=== PATIENT | female | born 1955 | race American Indian/Alaskan Native ===

== ENCOUNTER 2017-04-27 13:53 | Inpatient (IN) | payer BC ==
[2017-04-27] MEDS ORDERED: Sodium Chloride 0.9% 1,000 ML IV STA (14:20)
[2017-04-27 14:28] LABS: BASO # 0.04 K/mm3 (0.0-2.0); BASO % 0.3 % (0.0-3.0); EOS % 0.2 % (1.5-5.0); GRAN # 11.25 (1.4-6.5); GRAN % 81.1 % (50.0-68.0); HEMATOCRIT 37.5 % (36.0-48.0); LYMPH # 1.3 (1.2-3.4); LYMPH % 9.5 % (22.0-35.0); MEAN CORPUSCULAR HEMOGLOBIN 26.7 pg (25.0-35.0); MEAN CORPUSCULAR HGB CONC 33.3 g/dl (31.0-37.0); MONO # 1.2 (0.1-0.6); MONO % 8.9 % (1.0-6.0); RED CELL DISTRIBUTION WIDTH 13.7 % (11.5-14.5); WHITE BLOOD COUNT 13.9 10^3/ul (4.5-11.0)
[2017-04-27 14:33] LABS: URINE BILIRUBIN MODERATE (NEGATIVE); URINE BLOOD MODERATE (NEGATIVE); URINE GLUCOSE (UA) NEGATIVE (NEGATIVE); URINE KETONE 40 mg/dL (NEGATIVE); URINE LEUKOCYTE ESTERASE NEGATIVE Leu/uL (NEGATIVE); URINE PROTEIN 100 mg/dL (<30 mg/dL)
[2017-04-27 14:35] LABS: ALB/GLOB RATIO 1.1 (1.1-1.8); ALKALINE PHOSPHATASE 108 U/L (38-126); ALT/SGPT 32 U/L (7-56); AST/SGOT 40 U/L (14-36); BILIRUBIN,TOTAL 1.1 mg/dL (0.2-1.3); BLOOD UREA NITROGEN 11 mg/dL (7-21); CALCIUM 9.5 mg/dL (8.4-10.5); CARBON DIOXIDE 21 mmol/L (21-33); CHLORIDE 96 mmol/L (98-107); GFR AFRICAN-AMERICAN > 60; GLUCOSE,RANDOM 77 mg/dL (70-110); LIPASE 32 U/L (23-300); POTASSIUM 3.6 mmol/L (3.6-5.0); SODIUM 139 mmol/L (132-148); TOTAL PROTEIN 8.7 g/dL (5.8-8.3)
[2017-04-27 14:35] LABS: URINE APPEARANCE SL CLOUDY (CLEAR); URINE COLOR YELLOW (YELLOW)
[2017-04-27 14:36] LABS: URINE RBC 0 - 2 /hpf (0-2)
--- NOTE | 2017-04-27 14:37 | ED PDOC ---
Arrival/HPI - General Chief Complaint: Abdominal Pain Time Seen by Provider: 04/27/17 14:14 Historian: Patient - History of Present Illness Narrative History of Present Illness (Text): 04/27/17 14:37 A 61 year old female, whose past medical history includes diverticulosis, presents to the emergency department with one week duration left lower quadrant abdominal pain. The patient denies fevers, chills, headache, dizziness, sore throat, cough, chest pain, shortness of breath, dyspnea on exertion, nausea, vomiting, diarrhea, neck pain, back pain, urinary/bowel changes, blood in the stool, or any other complaints. PMD: Dr. Andujar Time/Duration: 1 week Symptom Onset: Sudden Symptom Course: Unchanged Activities at Onset: Rest, Light Context: Home Past Medical History - Provider Review Nursing Documentation Reviewed: Yes - Cardiac Hx Cardiac Disorders: No - Pulmonary Hx Respiratory Disorders: No - Neurological Hx Neurological Disorder: No - HEENT Hx HEENT Disorder: No - Renal Hx Renal Disorder: No - Endocrine/Metabolic Hx Endocrine Disorders: No - Hematological/Oncological Hx Blood Disorders: No - Integumentary Hx Dermatological Disorder: No - Musculoskeletal/Rheumatological Hx Musculoskeletal Disorders: No - Gastrointestinal Hx Diverticulitis: Yes - Genitourinary/Gynecological Hx Genitourinary Disorders: No - Psychiatric Hx Psychophysiologic Disorder: No Hx Substance Use: No Family/Social History - Physician Review Nursing Documentation Reviewed: Yes Family/Social History: No Known Family HX Smoking Status: Never Smoked Hx Alcohol Use: Yes Frequency of alcohol use: Socially Hx Substance Use: No Allergies/Home Meds Allergies/Adverse Reactions: Allergies codeine Allergy (Verified 04/27/17 13:59) SWELLING Review of Systems - Physician Review All systems were reviewed & negative as marked: Yes - Review of Systems Constitutional: absent: Fevers, Night Sweats Respiratory: absent: SOB, Cough Cardiovascular: absent: Chest Pain, RINCON Gastrointestinal: Abdominal Pain (LLQ Abdominal Pain). absent: Stool Changes, Diarrhea, Nausea, Vomiting, Hematemesis Genitourinary Female: absent: Urine Output Changes Musculoskeletal: absent: Back Pain, Neck Pain Neurological: absent: Headache, Dizziness Physical Exam Vital Signs Reviewed: Yes Vital Signs Temp Pulse Resp BP Pulse Ox 04/27/17 14:00 98.4 F 99 H 16 120/87 96 Temperature: Afebrile Blood Pressure: Normal Pulse: Tachycardic Respiratory Rate: Normal Appearance: Positive for: Well-Appearing, Non-Toxic, Comfortable Pain Distress: None Mental Status: Positive for: Alert and Oriented X 3 - Systems Exam Head: Present: Atraumatic, Normocephalic Pupils: Present: PERRL Extroacular Muscles: Present: EOMI Conjunctiva: Present: Normal Mouth: Present: Moist Mucous Membranes Neck: Present: Normal Range of Motion Respiratory/Chest: Present: Clear to Auscultation, Good Air Exchange. No: Respiratory Distress, Accessory Muscle Use Cardiovascular: Present: Regular Rate and Rhythm, Normal S1, S2. No: Murmurs Abdomen: Present: Tenderness (Tender on palpation of LLQ.) Back: Present: Normal Inspection Upper Extremity: Present: Normal Inspection. No: Cyanosis, Edema Lower Extremity: Present: Normal Inspection. No: Edema Neurological: Present: GCS=15, CN II-XII Intact, Speech Normal Skin: Present: Warm, Dry, Normal Color. No: Rashes Psychiatric: Present: Alert, Oriented x 3, Normal Insight, Normal Concentration Medical Decision Making ED Course and Treatment: 04/27/17 14:41 Impression: A 61 year old female presents with LLQ abdominal pain. Plan: -- Abdomen/ Pelvis CT -- Toradol and IV Fluids -- Labs -- Urinalysis -- Reassess and disposition Progress Notes: 04/27/17 18:45: Discussed results of abscess and need for surgical intervention. 04/27/17 19:38: Case discussed with Dr. Motta, residential door installer. Dr. Madrid will admit to service. 04/27/17 21:22 - Lab Interpretations Lab Results: 04/27/17 14:22 04/27/17 14:22 Lab Results 04/27/17 14:29: Urine Color Yellow, Urine Appearance Sl cloudy, Urine pH 6.0, Ur Specific Nice >= 1.030, Urine Protein 100 H, Urine Glucose (UA) Negative, Urine Ketones 40 H, Urine Blood Moderate H, Urine Nitrate Negative, Urine Bilirubin Moderate H, Urine Urobilinogen 1.0 H, Ur Leukocyte Esterase Negative, Urine RBC 0 - 2, Urine WBC 1 - 3, Ur Epithelial Cells 1 - 3 04/27/17 14:22: Sodium 139, Potassium 3.6, Chloride 96 L, Carbon Dioxide 21, Anion Gap 26 H, BUN 11, Creatinine 0.6 L, Est GFR ( Amer) > 60, Est GFR ( Non-Af Amer) > 60, Random Glucose 77, Calcium 9.5, Total Bilirubin 1.1, AST 40 H , ALT 32, Alkaline Phosphatase 108, Total Protein 8.7 H, Albumin 4.5, Globulin 4.2, Albumin/Globulin Ratio 1.1, Lipase 32 04/27/17 14:22: PT 11.8, INR 1.09 H, APTT 31.5 H 04/27/17 14:22: WBC 13.9 H, RBC 4.69, Hgb 12.5, Hct 37.5, MCV 80.0, MCH 26.7, MCHC 33.3, RDW 13.7, Plt Count 334, MPV 10.0, Gran % 81.1 H, Lymph % (Auto) 9.5 L, Day % (Auto) 8.9 H, Eos % (Auto) 0.2 L, Baso % (Auto) 0.3, Gran # 11.25 H, Lymph # 1.3, Day # 1.2 H, Eos # 0.0, Baso # 0.04 I have reviewed the lab results: Yes - RAD Interpretation Radiology Orders: 04/27/17 16:13 ABD PELVIS PO & IV CONTRAST [CT] Stat - Medication Orders Current Medication Orders: Acetaminophen (Tylenol 325mg Tab) 650 mg PO Q6H PRN PRN Reason: Fever >100.4 F Ciprofloxacin (Cipro 400mg/200ml Dsw) 400 mg in 200 mls @ 133.3 mls/hr IVPB Q12 STEVE PRN Reason: Protocol Stop: 04/27/17 23:31 Metronidazole (Flagyl) 500 mg in 100 mls @ 100 mls/hr IVPB Q8 STEVE PRN Reason: Protocol Sodium Chloride (Sodium Chloride 0.9%) 1,000 mls @ 100 mls/hr IV .Q10H [facility] Last Admin: 04/27/17 20:51 Dose: 100 mls/hr eMAR Start Stop Document 04/27/17 20:51 SE (Rec: 04/27/17 20:51 [id number]) Intravenous Solution Start Date 04/27/17 Start Time 20:51 Ibuprofen (Motrin Tab) 600 mg PO Q6H PRN PRN Reason: Pain, moderate (4-7) Pantoprazole Sodium (Protonix Inj) 40 mg IVP DAILY STEVE Discontinued Medications Sodium Chloride (Sodium Chloride 0.9%) 1,000 mls @ 1,000 mls/hr IV .Q1H STA Stop: 04/27/17 15:19 Last Admin: 04/27/17 14:29 Dose: 1,000 mls/hr eMAR Start Stop Document 04/27/17 14:29 SE (Rec: 04/27/17 14:29 [id number]) Intravenous Solution Start Date 04/27/17 Start Time 14:29 Piperacillin Sod/Tazobactam Sod (Zosyn 3.375 In Ns 100ml) 100 mls @ 200 mls/hr IVPB STAT STA PRN Reason: Protocol Stop: 04/27/17 19:06 Last Admin: 04/27/17 19:17 Dose: 200 mls/hr eMAR Start Stop Document 04/27/17 19:17 SE (Rec: 04/27/17 19:18 [id number]) Intravenous Solution Start Date 04/27/17 Start Time 19:18 Ketorolac Tromethamine (Toradol) 30 mg IVP STAT STA Stop: 04/27/17 14:21 Last Admin: 04/27/17 14:29 Dose: 30 mg MAR Pain Assessment Document 04/27/17 14:29 SE (Rec: 04/27/17 14:30 [id number]) Pain Reassessment Is this a pain reassessment? No Sleep Is patient sleeping during reassessment? No Presence of Pain Presence of Pain Yes Pain Scale Used Pain Scale Used Numeric Location Left, Right or Bilateral Left Upper or Lower Lower Pain Location Body Site Abdomen IVP Administration Document 04/27/17 14:29 SE (Rec: 04/27/17 14:30 [id number]) Charges for Administration # of IVP Administrations 1 - Scribe Statement The provider has reviewed the documentation as recorded by the Edilibnimisha Batres Provider Scribe Attestation: All medical record entries made by the Scribe were at my direction and personally dictated by me. I have reviewed the chart and agree that the record accurately reflects my personal performance of the history, physical exam, medical decision making, and the department course for this patient. I have also personally directed, reviewed, and agree with the discharge instructions and disposition. Disposition/Present on Arrival - Present on Arrival Any Indicators Present on Arrival: No History of DVT/PE: No History of Uncontrolled Diabetes: No Urinary Catheter: No History of Decub. Ulcer: No History Surgical Site Infection Following: None - Disposition Have Diagnosis and Disposition been Completed?: Yes Diagnosis: Diverticulitis of intestine with abscess Disposition: HOSPITALIZED Disposition Time: 07:00 Patient Problems: Current Active Problems Problem Status Onset Diverticulitis of intestine with abscess Acute Condition: STABLE
[2017-04-27 14:38] LABS: INR 1.09 (0.93-1.08); PARTIAL THROMBOPLASTIN TIME 31.5 Seconds (23.7-30.8)
[2017-04-27] MEDS ORDERED: Iohexol 240 (50 ml) ONE (15:29)
[2017-04-27] MEDS ORDERED: Iohexol 350 MG/100 ML VIAL ONE (17:56)
[2017-04-27] MEDS ORDERED: Piperacillin/Tazobact 3.375 gm 100 ML IVPB STA (18:37)
--- NOTE | 2017-04-27 20:03 | CT ---
PROCEDURE: CT Abdomen and Pelvis with contrast HISTORY: Left lower quadrant pain COMPARISON: 10/19/2015 CT abdomen and pelvis. Summary of findings on the comparison examination:Diverticulitis at the junction of the descending and sigmoid colon. No evidence of abscess or perforation 10/19/2015 abdominal ultrasound TECHNIQUE: Contrast dose: 100 cc Omnipaque 300 Radiation dose: Total exam DLP = 348.57 mGy-cm. This CT exam was performed using one or more of the following dose reduction techniques: Automated exposure control, adjustment of the mA and/or kV according to patient size, and/or use of iterative reconstruction technique. FINDINGS: LOWER THORAX: Unremarkable. LIVER: Unremarkable. No gross lesion or ductal dilatation. GALLBLADDER AND BILE DUCTS: Unremarkable. PANCREAS: Unremarkable. No gross lesion or ductal dilatation. SPLEEN: Unremarkable. ADRENALS: Unremarkable. No mass. KIDNEYS AND URETERS: Unremarkable. No hydronephrosis. No solid mass. VASCULATURE: Unremarkable. No aortic aneurysm. BOWEL: Segmental diverticulitis extending from the distal descending colon to and involving the sigmoid colon with sparing of the rectum. Low-attenuation focus within the inflammatory, phlegmonous process measuring 1.7 x 3.1 cm likely small abscess. This finding is best seen on coronal images series 601/image 41. Intense inflammatory changes involving the affected segment. Small micro perforations none larger than 7 mm are identified. Anatomically a similar area was affected on the prior study. Degree of acute diverticulitis however is more intense on the current study. APPENDIX: Normal appendix. PERITONEUM: Unremarkable. No free fluid. No free air. LYMPH NODES: Unremarkable. No enlarged lymph nodes. BLADDER: Unremarkable. REPRODUCTIVE: Anteverted myomatous uterus unchanged. BONES: No acute fracture. OTHER FINDINGS: None. IMPRESSION: Acute diverticulitis affecting distal descending and sigmoid colon. Abscess collection identified and described in greater detail in the commentary measuring 1.7 x 3.1 cm. The affected segment is similar to that seen previously although degree of intensity is more pronounced on the current examination. Additional benign and/or incidental findings described above.
--- NOTE | 2017-04-27 20:29 | CP.PCM.HP ---
<ZofiaSavanah - Last Filed: 04/27/17 20:24> History of Present Illness - History of Present Illness History of Present Illness: H&P for HospitalistGunjan PGY2 CC: LLQ abdominal pain x 1 week This is a 61Y F with PMH of diverticulosis who came to ED for LLQ pain x 1 week. She reports it is intermittent and does not radiate. She has been able to go to work and has not taken any pain medications. She states today she came to ED because it has not resolved. She denies having any n/v/d, CP, SOB, fever/ chills, numbness/tingling, dysuria or hematuria. Her GI is Dr. Toure. He did a colonoscopy this summer and patient reports it was "normal". She had only 1 episode of diverticulitis in the past 18 months ago. In ED, CT abd/pelvis showed acute diverticulitis in sigmoid and distal descending colon with small phlegmon process. PMH: Diverticulosis PSH: Denies Home meds: None All: Codeine- anaphylaxis SH: Denies tobacco, EtOH or drug use. FH: Breast cancer- sister PMD: Dr. Antonio Present on Admission - Present on Admission Any Indicators Present on Admission: No Review of Systems - Review of Systems All systems: reviewed and no additional remarkable complaints except Review of Systems: + abdominal pain Past Patient History - Past Social History Smoking Status: Never Smoked Alcohol: None Drugs: Denies Home Situation {Lives}: With Family - CARDIAC Hx Cardiac Disorders: No - PULMONARY Hx Respiratory Disorders: No - NEUROLOGICAL Hx Neurological Disorder: No - HEENT Hx HEENT Problems: No - RENAL Hx Chronic Kidney Disease: No - ENDOCRINE/METABOLIC Hx Endocrine Disorders: No - HEMATOLOGICAL/ONCOLOGICAL Hx Blood Disorders: No - INTEGUMENTARY Hx Dermatological Problems: No - MUSCULOSKELETAL/RHEUMATOLOGICAL Hx Musculoskeletal Disorders: No - GASTROINTESTINAL Hx Diverticulitis: Yes - GENITOURINARY/GYNECOLOGICAL Hx Genitourinary Disorders: No - PSYCHIATRIC Hx Psychophysiologic Disorder: No Hx Substance Use: No - SURGICAL HISTORY Hx Surgeries: No Meds Home Medications: Home Medication List Medication Instructions Recorded Confirmed Type Levofloxacin [Levaquin] 500 mg PO DAILY #7 tablet 04/30/17 Rx Metronidazole [Flagyl] 500 mg PO TID #21 tablet 04/30/17 Rx Allergies/Adverse Reactions: Allergies Allergy/AdvReac Type Severity Reaction Status Date / Time codeine Allergy SWELLING Verified 04/27/17 13:59 Physical Exam - Constitutional Appears: No Acute Distress - Head Exam Head Exam: ATRAUMATIC, NORMAL INSPECTION, NORMOCEPHALIC - Eye Exam Eye Exam: Normal appearance, PERRL Pupil Exam: NORMAL ACCOMODATION - ENT Exam ENT Exam: Mucous Membranes Moist - Respiratory Exam Respiratory Exam: Clear to Auscultation Bilateral, NORMAL BREATHING PATTERN. absent: Rales, Rhonchi, Wheezes - Cardiovascular Exam Cardiovascular Exam: REGULAR RHYTHM, +S1, +S2. absent: Gallop, Rubs, Systolic Murmur - GI/Abdominal Exam GI & Abdominal Exam: Normal Bowel Sounds, Soft, Tenderness (mild LLQ). absent: Guarding, Mass, Rebound, Rigid - Extremities Exam Extremities exam: Positive for: normal inspection. Negative for: calf tenderness, pedal edema - Neurological Exam Neurological exam: Alert, CN II-XII Intact, Oriented x3 - Psychiatric Exam Psychiatric exam: Normal Affect, Normal Mood - Skin Skin Exam: Dry, Intact, Normal Color, Warm Results - Vital Signs Recent Vital Signs: Last Vital Signs Temp 98.4 F 04/27/17 14:00 Pulse 99 H 04/27/17 14:00 Resp 16 04/27/17 14:00 BP 120/87 04/27/17 14:00 Pulse Ox 96 04/27/17 14:00 - Labs Result Diagrams: 04/27/17 14:22 04/27/17 14:22 Labs: Laboratory Results - last 24 hr 04/27/17 04/27/17 04/27/17 14:22 14:22 14:22 WBC 13.9 H RBC 4.69 Hgb 12.5 Hct 37.5 MCV 80.0 MCH 26.7 MCHC 33.3 RDW 13.7 Plt Count 334 MPV 10.0 Gran % 81.1 H Lymph % (Auto) 9.5 L Eddy % (Auto) 8.9 H Eos % (Auto) 0.2 L Baso % (Auto) 0.3 Gran # 11.25 H Lymph # 1.3 Eddy # 1.2 H Eos # 0.0 Baso # 0.04 PT 11.8 INR 1.09 H APTT 31.5 H Sodium 139 Potassium 3.6 Chloride 96 L Carbon Dioxide 21 Anion Gap 26 H BUN 11 Creatinine 0.6 L Est GFR ( Amer) > 60 Est GFR (Non-Af Amer) > 60 Random Glucose 77 Calcium 9.5 Total Bilirubin 1.1 AST 40 H ALT 32 Alkaline Phosphatase 108 Total Protein 8.7 H Albumin 4.5 Globulin 4.2 Albumin/Globulin Ratio 1.1 Lipase 32 Urine Color Urine Appearance Urine pH Ur Specific Dennis Urine Protein Urine Glucose (UA) Urine Ketones Urine Blood Urine Nitrate Urine Bilirubin Urine Urobilinogen Ur Leukocyte Esterase Urine RBC Urine WBC Ur Epithelial Cells 04/27/17 14:29 WBC RBC Hgb Hct MCV MCH MCHC RDW Plt Count MPV Gran % Lymph % (Auto) Eddy % (Auto) Eos % (Auto) Baso % (Auto) Gran # Lymph # Eddy # Eos # Baso # PT INR APTT Sodium Potassium Chloride Carbon Dioxide Anion Gap BUN Creatinine Est GFR ( Amer) Est GFR (Non-Af Amer) Random Glucose Calcium Total Bilirubin AST ALT Alkaline Phosphatase Total Protein Albumin Globulin Albumin/Globulin Ratio Lipase Urine Color Yellow Urine Appearance Sl cloudy Urine pH 6.0 Ur Specific Dennis >= 1.030 Urine Protein 100 H Urine Glucose (UA) Negative Urine Ketones 40 H Urine Blood Moderate H Urine Nitrate Negative Urine Bilirubin Moderate H Urine Urobilinogen 1.0 H Ur Leukocyte Esterase Negative Urine RBC 0 - 2 Urine WBC 1 - 3 Ur Epithelial Cells 1 - 3 Assessment & Plan - Assessment and Plan (Free Text) Assessment: This is a 61Y F with PMH of diverticulosis who is admitted for acute diverticulitis at the sigmoid and distal descending colon with possible small abscess seen on CT. Plan: 1. Diverticulitis - Cipro, Flagyl - NS@100 - GI consulted - Surgery consulted - Tylenol prn fever - Motrin prn pain - NPO diet GI ppx: Protonix DVT ppx: SCDs Case seen, discussed and reviewed with attending. Gunjan Armijo PGY2 - Date & Time Date: 04/27/17 Time: 20:41 <Ty Bermudez MD - Last Filed: 04/30/17 10:55> Results - Vital Signs Recent Vital Signs: Last Vital Signs Temp 97.9 F 04/30/17 08:14 Pulse 61 04/30/17 08:14 Resp 20 04/30/17 08:14 BP 128/87 04/30/17 08:14 Pulse Ox 100 04/30/17 08:14 - Labs Result Diagrams: 04/29/17 07:00 04/29/17 07:00 Attending/Attestation - Attestation I have personally seen and examined this patient.: Yes I have fully participated in the care of the patient.: Yes I have reviewed all pertinent clinical information: Yes Notes (Text): -I agree with the above H&P completed by the resident physician with the following additions and/or changes: -The patient is a 61 year old woman being admitted for acute diverticulitis with CT findings concerning for possible associated abscess. She's be started on empiric IV antibiotics and kept NPO for bowel rest. Surgery has been consulted possible drainage of abscess. IV Morphine and Zofran for symptomatic relief as needed.
--- NOTE | 2017-04-27 20:39 | CP.PCM.CON ---
History of Present Illness - History of Present Illness History of Present Illness: General Surgery Consult Note- Dr. Motta 61F pmhx of one episode of diverticulitis 1.5 years ago was treated conservatively presents to [facility] with LLQ abdominal pain that started Sunday. Pain has been intermittent, and decided to come to the ED to make sure "there was nothing serious". Pt has been eating yogurt over the past week, Pain is relieved after flatus. Currently denies pain. No episodes of Nausea vomiting diarrhea, BRBPR bloody BM. Pt previous episode of diverticulitis, she experienced fevers chills and was more symptomatic. At this time patient denies F/C CP/SOB N/V/D BRBPR, change in urinary frequency MARTINEZ Numbness/tingling in extremities. Pt currently has an appetite. Last colonoscopy was this summer and stated it was "normal" PMH: Diverticulitis, Hemorrhoids PSH: none ALL: Codine SocialHx: Denies ETOH, tobacco, illicit drug use PMD: Dr. Andujar GI: Dr. Haddad Review of Systems - Review of Systems All systems: reviewed and no additional remarkable complaints except - Constitutional Constitutional: As Per HPI Past Patient History - Past Social History Smoking Status: Never Smoked - CARDIAC Hx Cardiac Disorders: No - PULMONARY Hx Respiratory Disorders: No - NEUROLOGICAL Hx Neurological Disorder: No - HEENT Hx HEENT Problems: No - RENAL Hx Chronic Kidney Disease: No - ENDOCRINE/METABOLIC Hx Endocrine Disorders: No - HEMATOLOGICAL/ONCOLOGICAL Hx Blood Disorders: No - INTEGUMENTARY Hx Dermatological Problems: No - MUSCULOSKELETAL/RHEUMATOLOGICAL Hx Musculoskeletal Disorders: No - GASTROINTESTINAL Hx Diverticulitis: Yes - GENITOURINARY/GYNECOLOGICAL Hx Genitourinary Disorders: No - PSYCHIATRIC Hx Psychophysiologic Disorder: No Hx Substance Use: No - SURGICAL HISTORY Hx Surgeries: No Meds Home Medications: Home Medication List Medication Instructions Recorded Confirmed Type Ciprofloxacin [Cipro] 500 mg PO BID #20 tab 04/27/17 Rx metroNIDAZOLE [Flagyl] 500 mg PO TID #30 tab 04/27/17 Rx Allergies/Adverse Reactions: Allergies Allergy/AdvReac Type Severity Reaction Status Date / Time codeine Allergy SWELLING Verified 04/27/17 13:59 - Medications Medications: Current Medications Acetaminophen (Tylenol 325mg Tab) 650 mg PO Q6H PRN PRN Reason: Fever >100.4 F Ciprofloxacin (Cipro 400mg/200ml Dsw) 400 mg in 200 mls @ 133.3 mls/hr IVPB Q12 STEVE PRN Reason: Protocol Stop: 04/27/17 23:31 Metronidazole (Flagyl) 500 mg in 100 mls @ 100 mls/hr IVPB Q8 STEVE PRN Reason: Protocol Sodium Chloride (Sodium Chloride 0.9%) 1,000 mls @ 100 mls/hr IV .Q10H STEVE Pantoprazole Sodium (Protonix Inj) 40 mg IVP DAILY [facility] Physical Exam - Constitutional Appears: Non-toxic, No Acute Distress - Head Exam Head Exam: ATRAUMATIC - Eye Exam Eye Exam: EOMI. absent: Scleral icterus - ENT Exam ENT Exam: Mucous Membranes Moist - Respiratory Exam Respiratory Exam: NORMAL BREATHING PATTERN. absent: Accessory Muscle Use, Respiratory Distress - Cardiovascular Exam Cardiovascular Exam: +S1, +S2. absent: Bradycardia, Tachycardia - GI/Abdominal Exam GI & Abdominal Exam: Soft, Tenderness. absent: Distended, Firm, Guarding, Hernia, Rigid Additional comments: Tender to deep palpation in LLQ. No palpable masses or rebound tenderness - Extremities Exam Extremities exam: Positive for: normal inspection. Negative for: calf tenderness - Back Exam Back exam: absent: CVA tenderness (L), CVA tenderness (R) - Neurological Exam Neurological exam: Alert, Oriented x3 - Skin Skin Exam: Normal Color, Warm Results - Vital Signs Recent Vital Signs: Last Vital Signs Temp 98.4 F 04/27/17 14:00 Pulse 99 H 04/27/17 14:00 Resp 16 04/27/17 14:00 BP 120/87 04/27/17 14:00 Pulse Ox 96 04/27/17 14:00 - Labs Result Diagrams: 04/27/17 14:22 04/27/17 14:22 Assessment & Plan - Assessment and Plan (Free Text) Assessment: 61F LLQ, Acute diverticulitis w/ paracolic abscess Plan: - NPO - IVF/Abx - Bowel rest - GI/DVT ppx - repeat labs - further recs per Dr. Kalia Mccollum PGY1
[2017-04-27] MEDS: Sodium Chloride 0.9% 1,000 ML IV SCH (20:51)
[2017-04-27] MEDS ORDERED: Ciprofloxacin 400mg/200ml D5W 400 MG/200 ML BAG IVPB SCH (22:00)
[2017-04-27] MEDS: metroNIDAZOLE IV 500 mg/100 ml 500 MG/100 ML BAG IVPB SCH (22:30)
[2017-04-28] MEDS: metroNIDAZOLE IV 500 mg/100 ml 500 MG/100 ML BAG IVPB SCH ×3 (06:00→21:38)
[2017-04-28] MEDS: Dextrose 5%/0.9% NS 1,000 ML IV SCH ×2 (07:49→19:15)
[2017-04-28 08:24] LABS: BASO # 0.04 K/mm3 (0.0-2.0); BASO % 0.3 % (0.0-3.0); EOS % 0.3 % (1.5-5.0); GRAN # 10.77 (1.4-6.5); GRAN % 80.3 % (50.0-68.0); HEMATOCRIT 30.7 % (36.0-48.0); LYMPH # 1.4 (1.2-3.4); LYMPH % 10.7 % (22.0-35.0); MEAN CELL VOLUME 79.9 fl (80.0-105.0); MEAN CORPUSCULAR HEMOGLOBIN 26.6 pg (25.0-35.0); MEAN CORPUSCULAR HGB CONC 33.2 g/dl (31.0-37.0); MEAN PLATELET VOLUME 9.9 fl (7.0-11.0); MONO # 1.1 (0.1-0.6); MONO % 8.4 % (1.0-6.0); RED CELL DISTRIBUTION WIDTH 13.7 % (11.5-14.5); WHITE BLOOD COUNT 13.4 10^3/ul (4.5-11.0)
[2017-04-28 08:45] LABS: ALKALINE PHOSPHATASE 80 U/L (38-126); ALT/SGPT 36 U/L (7-56); AST/SGOT 35 U/L (14-36); BILIRUBIN,TOTAL 0.9 mg/dL (0.2-1.3); BLOOD UREA NITROGEN 7 mg/dL (7-21); CALCIUM 8.6 mg/dL (8.4-10.5); CARBON DIOXIDE 19 mmol/L (21-33); CHLORIDE 105 mmol/L (98-107); GFR AFRICAN-AMERICAN > 60; GLUCOSE,RANDOM 71 mg/dL (70-110); POTASSIUM 4.5 mmol/L (3.6-5.0); SODIUM 141 mmol/L (132-148); TOTAL PROTEIN 6.7 g/dL (5.8-8.3)
--- NOTE | 2017-04-28 09:16 | CP.PCM.PN ---
Subjective - Date & Time of Evaluation Date of Evaluation: 04/28/17 Time of Evaluation: 07:00 - Subjective Subjective: General Surgery- Dr. Motta Pt S&E at bedside this AM. No acute events overnight. Pt currently NPO, however has an appetite and would like to eat. Denies F/C CP/SOB N/V/D Objective - Vital Signs/Intake and Output Vital Signs (last 24 hours): Temp Pulse Resp BP Pulse Ox 98.4 F 83 20 111/76 98 04/28/17 09:00 04/28/17 09:00 04/28/17 09:00 04/28/17 09:00 04/28/17 09:00 - Medications Medications: Current Medications Acetaminophen (Tylenol 325mg Tab) 650 mg PO Q6H PRN PRN Reason: Fever >100.4 F Metronidazole (Flagyl) 500 mg in 100 mls @ 100 mls/hr IVPB Q8 STEVE PRN Reason: Protocol Last Admin: 04/28/17 06:00 Dose: 100 mls/hr Sodium Chloride (Sodium Chloride 0.9%) 1,000 mls @ 100 mls/hr IV .Q10H STEVE Last Admin: 04/27/17 20:51 Dose: 100 mls/hr Levofloxacin/Dextrose (Levaquin 500mg) 500 mg in 100 mls @ 100 mls/hr IVPB DAILY STEVE Stop: 05/01/17 23:59 Dextrose/Sodium Chloride (Dextrose 5%/0.9% Ns 1000 Ml) 1,000 mls @ 100 mls/hr IV .Q10H STEVE Last Admin: 04/28/17 07:49 Dose: 100 mls/hr Pantoprazole Sodium (Protonix Inj) 40 mg IVP DAILY STEVE - Labs Labs: 04/28/17 08:17 04/28/17 08:17 PT 11.8 Seconds (9.9-11.8) 04/27/17 14:22 INR 1.09 (0.93-1.08) H 04/27/17 14:22 APTT 31.5 Seconds (23.7-30.8) H 04/27/17 14:22 - Constitutional Appears: Non-toxic, No Acute Distress - Head Exam Head Exam: ATRAUMATIC - Eye Exam Eye Exam: EOMI. absent: Scleral icterus - ENT Exam ENT Exam: Mucous Membranes Moist - Respiratory Exam Respiratory Exam: NORMAL BREATHING PATTERN. absent: Accessory Muscle Use, Respiratory Distress - Cardiovascular Exam Cardiovascular Exam: +S1, +S2. absent: Bradycardia, Tachycardia - GI/Abdominal Exam GI & Abdominal Exam: Soft. absent: Distended, Firm, Guarding, Rigid, Tenderness - Extremities Exam Extremities Exam: Normal Inspection. absent: Calf Tenderness - Back Exam Back Exam: absent: CVA tenderness (L), CVA tenderness (R) - Neurological Exam Neurological Exam: Alert, Awake, Oriented x3 - Psychiatric Exam Psychiatric exam: Normal Affect - Skin Skin Exam: Normal Color, Warm Assessment and Plan - Assessment and Plan (Free Text) Assessment: 61F w/ Acute Diverticulitis Plan: - Advance diet to clears - IV Abx - serial abd exams - Trend WBC - No acute surgical intervention at this time - Will talk to IR for possible Abscess drainage - further recs per Dr. Kalia Mccollum PGY1
[2017-04-28] MEDS: levoFLOXacin 500 mg in D5W 500 MG/100 ML BAG IVPB SCH (10:07)
--- NOTE | 2017-04-28 10:32 | CP.PCM.PN ---
<Dami Torres - Last Filed: 04/28/17 10:32> Subjective - Date & Time of Evaluation Date of Evaluation: 04/28/17 Time of Evaluation: 08:30 - Subjective Subjective: Pt seen and examined at bedside this AM. No acute events overnight. Pt currently NPO, however has an appetite and would like to eat. Denies any fevers , chills, nausea, vomiting, chest pain, shortness of breath, abdominal pain, diarrhea or any other complaints. Objective - Vital Signs/Intake and Output Vital Signs (last 24 hours): Temp Pulse Resp BP Pulse Ox 98.4 F 83 20 111/76 98 04/28/17 09:00 04/28/17 09:00 04/28/17 09:00 04/28/17 09:00 04/28/17 09:00 - Medications Medications: Current Medications Acetaminophen (Tylenol 325mg Tab) 650 mg PO Q6H PRN PRN Reason: Fever >100.4 F Metronidazole (Flagyl) 500 mg in 100 mls @ 100 mls/hr IVPB Q8 [facility] PRN Reason: Protocol Last Admin: 04/28/17 06:00 Dose: 100 mls/hr Sodium Chloride (Sodium Chloride 0.9%) 1,000 mls @ 100 mls/hr IV .Q10H [facility] Last Admin: 04/27/17 20:51 Dose: 100 mls/hr Levofloxacin/Dextrose (Levaquin 500mg) 500 mg in 100 mls @ 100 mls/hr IVPB DAILY [facility] Stop: 05/01/17 23:59 Last Admin: 04/28/17 10:07 Dose: 100 mls/hr Dextrose/Sodium Chloride (Dextrose 5%/0.9% Ns 1000 Ml) 1,000 mls @ 100 mls/hr IV .Q10H [facility] Last Admin: 04/28/17 07:49 Dose: 100 mls/hr Pantoprazole Sodium (Protonix Inj) 40 mg IVP DAILY [facility] Last Admin: 04/28/17 10:07 Dose: 40 mg - Labs Labs: 04/28/17 08:17 04/28/17 08:17 PT 11.8 Seconds (9.9-11.8) 04/27/17 14:22 INR 1.09 (0.93-1.08) H 04/27/17 14:22 APTT 31.5 Seconds (23.7-30.8) H 04/27/17 14:22 - Head Exam Head Exam: ATRAUMATIC, NORMAL INSPECTION, NORMOCEPHALIC - Eye Exam Eye Exam: EOMI, Normal appearance, PERRL Pupil Exam: NORMAL ACCOMODATION, PERRL. absent: Irregular, Unequal - ENT Exam ENT Exam: Mucous Membranes Moist, Normal Exam. absent: Normal Oropharynx, TM's Normal Bilaterally - Neck Exam Neck Exam: Normal Inspection. absent: Lymphadenopathy, Thyromegaly - Respiratory Exam Respiratory Exam: Clear to Ausculation Bilateral, NORMAL BREATHING PATTERN. absent: Respiratory Distress - Cardiovascular Exam Cardiovascular Exam: REGULAR RHYTHM, RRR, +S1, +S2. absent: Gallop, Rubs - GI/Abdominal Exam GI & Abdominal Exam: Soft, Tenderness, Normal Bowel Sounds - Extremities Exam Extremities Exam: Full ROM, Normal Inspection - Back Exam Back Exam: NORMAL INSPECTION. absent: CVA tenderness (L), CVA tenderness (R), paraspinal tenderness - Neurological Exam Neurological Exam: Alert, Awake, CN II-XII Intact, Normal Gait, Oriented x3 - Psychiatric Exam Psychiatric exam: Normal Affect, Normal Mood - Skin Skin Exam: Dry, Intact Assessment and Plan - Assessment and Plan (Free Text) Assessment: This is a 61Y F with PMH of diverticulosis who is admitted for acute diverticulitis at the sigmoid and distal descending colon with possible small abscess seen on CT. Plan: 1. Diverticulitis -Continue Ciprofloxacin and Flagyl. -NS d/c'ed. -GI consulted. Will f/u with rec's tomorrow. -Surgery rec's appreciated. -Continue Tylenol prn fever -Continue Motrin prn pain -NPO diet GI ppx: Protonix DVT ppx: SCDs <Elizabeth Mann - Last Filed: 04/29/17 14:02> Objective - Vital Signs/Intake and Output Vital Signs (last 24 hours): Temp Pulse Resp BP Pulse Ox 97.6 F 61 20 124/79 100 04/29/17 07:39 04/29/17 07:39 04/29/17 07:39 04/29/17 07:39 04/29/17 07:39 Intake and Output: 04/29/17 04/29/17 06:59 18:59 Intake Total 900 2400 Balance 900 2400 - Medications Medications: Current Medications Acetaminophen (Tylenol 325mg Tab) 650 mg PO Q6H PRN PRN Reason: Fever >100.4 F Metronidazole (Flagyl) 500 mg in 100 mls @ 100 mls/hr IVPB Q8 STEVE PRN Reason: Protocol Last Admin: 04/29/17 05:51 Dose: 100 mls/hr Sodium Chloride (Sodium Chloride 0.9%) 1,000 mls @ 100 mls/hr IV .Q10H STEVE Last Admin: 04/29/17 05:53 Dose: Not Given Levofloxacin/Dextrose (Levaquin 500mg) 500 mg in 100 mls @ 100 mls/hr IVPB DAILY [facility] Stop: 05/01/17 23:59 Last Admin: 04/29/17 10:33 Dose: 100 mls/hr Dextrose/Sodium Chloride (Dextrose 5%/0.9% Ns 1000 Ml) 1,000 mls @ 100 mls/hr IV .Q10H [facility] Last Admin: 04/29/17 05:51 Dose: 100 mls/hr Pantoprazole Sodium (Protonix Inj) 40 mg IVP DAILY [facility] Last Admin: 04/29/17 10:33 Dose: 40 mg - Labs Labs: 04/29/17 07:00 04/29/17 07:00 PT 11.8 Seconds (9.9-11.8) 04/27/17 14:22 INR 1.09 (0.93-1.08) H 04/27/17 14:22 APTT 31.5 Seconds (23.7-30.8) H 04/27/17 14:22 Attending/Attestation - Attestation I have personally seen and examined this patient.: Yes I have fully participated in the care of the patient.: Yes I have reviewed all pertinent clinical information, including history, physical exam and plan: Yes Notes (Text): 04/29/17 14:00 Patient was seen and examined with back office medical assistant. Agreed with resident assessment and plan. 61 yo F with acute complicated diverticulitis with micro perforation and abscess seen on CT scan of abdomen and Pelvis.Patient is clinically improving, We will continue IV antibiotics, and IV fluid. GI and surgery is following. Management plan was discussed in detail with patient Education was provided.
--- NOTE | 2017-04-28 16:10 | CON ---
HISTORY OF PRESENT ILLNESS: This is a 61-year-old black female known to consultants with a past medical history of diverticulosis noted by colonoscopy primarily involving the area of the descending colon and sigmoid. The patient apparently was experiencing left lower quadrant discomfort several days prior to admission. She denied any hematemesis or rectal bleeding prior to admission. The abdomen was mildly distended at home. Because of discomfort, she deferred eating a regular meals for several days prior to admissions as well. She denied any high fevers, back pain, etc. PHYSICAL EXAMINATION: VITAL SIGNS: I reviewed this patient's vital signs. HEENT: Noncontributory except for some dry mouth. LUNGS: Clear to auscultation. HEART: Regular rhythm. ABDOMEN: Soft, mildly distended. Right upper and right lower quadrant noncontributory. She has no other discomfort noted in the epigastric or left upper quadrant. In periumbilical area, there was noted a fullness. To the left of the umbilicus, there was a fullness noted as was significant in the area of the left lower quadrant. Palpation of the lateral 2 areas elicits discomfort at that side. LABORATORY DATA: I reviewed this patient's laboratory data, which is consistent with white count 13,900, normal platelets, H and H within normal limits. Coagulation within normal limits. Chemistry noncontributory. Urine showed with moderate blood. I reviewed the abdominal CT scan plus images, indicate evidence of thick wall colon and diverticulitis extending from the mid descending colon to the sigmoid. As indicated in the report, it looks like there may be a small abscess noted which is measured radiologically, it is roughly about 3 cm. Apparently, the appendix and lymph nodes normal. There is nothing noted in the periumbilical area. OVERALL ASSESSMENT: This is a 61-year-old black female with a known history of diverticulosis, presents with acute onset of diverticulitis with abscess. The patient was seen by the vice president of news. Follow up is pending for earlier on this morning. The patient is currently on metronidazole, and currently the Zosyn was discontinued, which was administered in the emergency room. She is on Protonix 40 mg daily. The patient was placed on Motrin 600 mg q.6 by the house staff, however, I would discontinue this and place her on something more gastric friendly. I will start the patient on Levaquin, which will be used in addition to metronidazole. Possibly, the patient may be consulted by Dr. Jean or ID of choice, which case they will probably end up starting Zosyn at a later date. The patient is currently on n.p.o. diet. We consider small volume clear liquid later on this morning. However, ice chip diet at least tentatively until evaluated by the surgeons later on this morning. Madi Toure DO, PhD MTDFrancine
[2017-04-28 19:53] VITALS: O2SAT 100
[2017-04-28] MEDS: Sodium Chloride 0.9% 1,000 ML IV SCH ×2 (21:38→23:22)
[2017-04-29] MEDS: Dextrose 5%/0.9% NS 1,000 ML IV SCH ×2 (05:51→21:28)
[2017-04-29] MEDS: metroNIDAZOLE IV 500 mg/100 ml 500 MG/100 ML BAG IVPB SCH ×3 (05:51→21:28)
[2017-04-29] MEDS: Sodium Chloride 0.9% 1,000 ML IV SCH ×2 (05:53→21:30)
[2017-04-29 07:37] LABS: BASO # 0.03 K/mm3 (0.0-2.0); BASO % 0.4 % (0.0-3.0); EOS # 0.1 (0.0-0.7); EOS % 1.1 % (1.5-5.0); GRAN # 5.14 (1.4-6.5); GRAN % 73.6 % (50.0-68.0); HEMATOCRIT 30.8 % (36.0-48.0); LYMPH # 1.1 (1.2-3.4); LYMPH % 15.5 % (22.0-35.0); MEAN CELL VOLUME 79.6 fl (80.0-105.0); MEAN CORPUSCULAR HEMOGLOBIN 25.8 pg (25.0-35.0); MEAN CORPUSCULAR HGB CONC 32.5 g/dl (31.0-37.0); MEAN PLATELET VOLUME 9.9 fl (7.0-11.0); MONO # 0.7 (0.1-0.6); MONO % 9.4 % (1.0-6.0); RED CELL DISTRIBUTION WIDTH 13.6 % (11.5-14.5)
[2017-04-29 07:40] VITALS: RESP 20
[2017-04-29 07:43] LABS: ALKALINE PHOSPHATASE 74 U/L (38-126); ALT/SGPT 33 U/L (7-56); AST/SGOT 31 U/L (14-36); BILIRUBIN,TOTAL 0.6 mg/dL (0.2-1.3); BLOOD UREA NITROGEN 3 mg/dL (7-21); CALCIUM 8.4 mg/dL (8.4-10.5); CARBON DIOXIDE 27 mmol/L (21-33); CHLORIDE 108 mmol/L (98-107); GFR AFRICAN-AMERICAN > 60; GLUCOSE,RANDOM 104 mg/dL (70-110); POTASSIUM 3.5 mmol/L (3.6-5.0); SODIUM 144 mmol/L (132-148); TOTAL PROTEIN 6.5 g/dL (5.8-8.3)
--- NOTE | 2017-04-29 09:10 | CP.PCM.PN ---
Subjective - Date & Time of Evaluation Date of Evaluation: 04/29/17 Time of Evaluation: 09:07 - Subjective Subjective: Surgery Progress note. Dr. Motta Pt seen and examined at bedside. No acute events overnight. Abd pain improved. No N/V/D. No new complaints. Tolerating diet, however, sticking to full liquids as she does not enjoy the Vegan soft diet provided last night by hospital staff. Objective - Vital Signs/Intake and Output Vital Signs (last 24 hours): Temp Pulse Resp BP Pulse Ox 97.6 F 61 20 124/79 100 04/29/17 07:39 04/29/17 07:39 04/29/17 07:39 04/29/17 07:39 04/29/17 07:39 Intake and Output: 04/29/17 04/29/17 06:59 18:59 Intake Total 900 2400 Balance 900 2400 - Medications Medications: Current Medications Acetaminophen (Tylenol 325mg Tab) 650 mg PO Q6H PRN PRN Reason: Fever >100.4 F Metronidazole (Flagyl) 500 mg in 100 mls @ 100 mls/hr IVPB Q8 [facility]EVE PRN Reason: Protocol Last Admin: 04/29/17 05:51 Dose: 100 mls/hr Sodium Chloride (Sodium Chloride 0.9%) 1,000 mls @ 100 mls/hr IV .Q10H [facility] Last Admin: 04/29/17 05:53 Dose: Not Given Levofloxacin/Dextrose (Levaquin 500mg) 500 mg in 100 mls @ 100 mls/hr IVPB DAILY [facility] Stop: 05/01/17 23:59 Last Admin: 04/28/17 10:07 Dose: 100 mls/hr Dextrose/Sodium Chloride (Dextrose 5%/0.9% Ns 1000 Ml) 1,000 mls @ 100 mls/hr IV .Q10H [facility] Last Admin: 04/29/17 05:51 Dose: 100 mls/hr Pantoprazole Sodium (Protonix Inj) 40 mg IVP DAILY [facility] Last Admin: 04/28/17 10:07 Dose: 40 mg - Labs Labs: 04/29/17 07:00 04/29/17 07:00 PT 11.8 Seconds (9.9-11.8) 04/27/17 14:22 INR 1.09 (0.93-1.08) H 04/27/17 14:22 APTT 31.5 Seconds (23.7-30.8) H 04/27/17 14:22 - Constitutional Appears: Well, No Acute Distress - Head Exam Head Exam: ATRAUMATIC, NORMAL INSPECTION, NORMOCEPHALIC - Eye Exam Eye Exam: EOMI, Normal appearance - ENT Exam ENT Exam: Mucous Membranes Moist - Neck Exam Neck Exam: Full ROM - Respiratory Exam Respiratory Exam: NORMAL BREATHING PATTERN. absent: Rhonchi, Wheezes, Respiratory Distress - Cardiovascular Exam Cardiovascular Exam: RRR, +S1, +S2. absent: JVD - GI/Abdominal Exam GI & Abdominal Exam: Soft. absent: Firm, Guarding, Rigid, Tenderness, Rebound - Extremities Exam Extremities Exam: Normal Inspection. absent: Calf Tenderness - Neurological Exam Neurological Exam: Alert, Awake, Oriented x3 - Psychiatric Exam Psychiatric exam: Normal Affect, Normal Mood - Skin Skin Exam: Dry, Intact, Normal Color, Warm Assessment and Plan - Assessment and Plan (Free Text) Assessment: 61yo F with acute complicated diverticulitis w/ microperf as seen on CT. Symptoms resolved. - Tolerating Soft diet. ADAT - Continue IV Abx - F/u GI recs - No acute surgical intervention at this time Further recs as per Dr. Kalia Uriostegui PGY1 surgery pager: [phone]
[2017-04-29] MEDS: levoFLOXacin 500 mg in D5W 500 MG/100 ML BAG IVPB SCH (10:33)
[2017-04-29] MEDS ORDERED: Potassium Chloride 20 mEq ER Tab PO ONE (10:37)
--- NOTE | 2017-04-29 10:44 | PN ---
DATE: 04/29/2017 SUBJECTIVE: I saw Ms. Yeh this morning. She is a 61-year-old black female, known to consultants with a past medical history of diverticulosis. The patient seems to be doing well on the current therapeutic regimen for descending colon and sigmoid diverticulitis. The patient is experiencing a minimal pain level roughly 2 out of 10, if that. MEDICATIONS: At the current time point include Levaquin as well as metronidazole. REVIEW OF SYSTEMS: Nausea and vomiting, not an issue. She has no referred pain to the back either. No fever, chills or hematemesis or rectal bleeding. PHYSICAL EXAMINATION VITAL SIGNS: I reviewed this patient's vital signs. HEENT: Significant for dry mouth. LUNGS: Clear to auscultation. HEART: Regular rhythm. ABDOMEN: Soft. No tenderness elicited in the right upper and right lower quadrant. There is some discomfort elicited on palpation of the periumbilical area with radiation to the left lower quadrant. There is a still noted on physical exam, fullness noted in the left periumbilical as well as in the left lower quadrant with mild abdominal distention in the lateral areas. I reviewed the notes with the respective consultants including as well as . OVERALL ASSESSMENT: This is a 61-year-old black female whom we treated with Levaquin and metronidazole for diverticulitis with small abscess. We did discuss this issue with house staff yesterday, apparently a consultation with Dr. Sammy Pickering is pending for abscess aspiration. No surgical intervention is noted at the current time point. Laboratory data is pending for this morning. Note that the patient was ordered a heart healthy diet. This was contraindicating the presence of diverticulitis. We push the patient on a clear liquid diet at the current time point. Madi Toure DO
--- NOTE | 2017-04-29 13:50 | CP.PCM.PN ---
Subjective - Date & Time of Evaluation Date of Evaluation: 04/29/17 Time of Evaluation: 06:48 - Subjective Subjective: Patient seen and examined at bedside. The patient reports feeling better and is tolerating liquid diet with no complaints. The patient denies any chest pain , shortness of breath, nausea, vomiting, changes in vision, abdominal pain, dizziness, or any other complaints. Objective - Vital Signs/Intake and Output Vital Signs (last 24 hours): Temp Pulse Resp BP Pulse Ox 97.6 F 61 20 124/79 100 04/29/17 07:39 04/29/17 07:39 04/29/17 07:39 04/29/17 07:39 04/29/17 07:39 Intake and Output: 04/29/17 04/29/17 06:59 18:59 Intake Total 900 2400 Balance 900 2400 - Medications Medications: Current Medications Acetaminophen (Tylenol 325mg Tab) 650 mg PO Q6H PRN PRN Reason: Fever >100.4 F Metronidazole (Flagyl) 500 mg in 100 mls @ 100 mls/hr IVPB Q8 [facility]EVE PRN Reason: Protocol Last Admin: 04/29/17 05:51 Dose: 100 mls/hr Sodium Chloride (Sodium Chloride 0.9%) 1,000 mls @ 100 mls/hr IV .Q10H [facility] Last Admin: 04/29/17 05:53 Dose: Not Given Levofloxacin/Dextrose (Levaquin 500mg) 500 mg in 100 mls @ 100 mls/hr IVPB DAILY [facility] Stop: 05/01/17 23:59 Last Admin: 04/29/17 10:33 Dose: 100 mls/hr Dextrose/Sodium Chloride (Dextrose 5%/0.9% Ns 1000 Ml) 1,000 mls @ 100 mls/hr IV .Q10H [facility] Last Admin: 04/29/17 05:51 Dose: 100 mls/hr Pantoprazole Sodium (Protonix Inj) 40 mg IVP DAILY [facility] Last Admin: 04/29/17 10:33 Dose: 40 mg - Labs Labs: 04/29/17 07:00 04/29/17 07:00 PT 11.8 Seconds (9.9-11.8) 04/27/17 14:22 INR 1.09 (0.93-1.08) H 04/27/17 14:22 APTT 31.5 Seconds (23.7-30.8) H 04/27/17 14:22 - Head Exam Head Exam: ATRAUMATIC, NORMAL INSPECTION, NORMOCEPHALIC - Eye Exam Eye Exam: EOMI, Normal appearance, PERRL Pupil Exam: NORMAL ACCOMODATION, PERRL. absent: Irregular, Unequal - ENT Exam ENT Exam: Mucous Membranes Moist, Normal Oropharynx - Neck Exam Neck Exam: Normal Inspection. absent: Lymphadenopathy, Tenderness, Thyromegaly - Respiratory Exam Respiratory Exam: Clear to Ausculation Bilateral, NORMAL BREATHING PATTERN. absent: Accessory Muscle Use, Chest Wall Tenderness, Prolonged Expiratory Phase , Respiratory Distress - Cardiovascular Exam Cardiovascular Exam: REGULAR RHYTHM, RRR, +S1, +S2. absent: Gallop, Rubs - GI/Abdominal Exam GI & Abdominal Exam: Soft, Tenderness, Normal Bowel Sounds. absent: Guarding, Rigid, Organomegaly - Extremities Exam Extremities Exam: Full ROM, Normal Inspection. absent: Joint Swelling, Pedal Edema - Back Exam Back Exam: NORMAL INSPECTION. absent: CVA tenderness (L), CVA tenderness (R), paraspinal tenderness - Neurological Exam Neurological Exam: Alert, Awake, CN II-XII Intact, Normal Gait, Oriented x3 - Psychiatric Exam Psychiatric exam: Normal Affect, Normal Mood - Skin Skin Exam: Dry, Intact Assessment and Plan - Assessment and Plan (Free Text) Assessment: This is a 61Y F with PMH of diverticulosis who is admitted for acute diverticulitis at the sigmoid and distal descending colon with possible small abscess seen on CT. Plan: 1. Diverticulitis -Continue Ciprofloxacin and Flagyl. -NS d/c'ed. -GI consulted. Will f/u with rec's tomorrow. -Surgery rec's appreciated. -Continue Tylenol prn fever -Continue Motrin prn pain -Diet advanced to liquid. Will advance as tolerated. GI ppx: Protonix DVT ppx: SCDs
[2017-04-30] MEDS: Sodium Chloride 0.9% 1,000 ML IV SCH ×2 (06:28→11:39)
[2017-04-30] MEDS: Dextrose 5%/0.9% NS 1,000 ML IV SCH ×2 (06:28→11:39)
[2017-04-30] MEDS: metroNIDAZOLE IV 500 mg/100 ml 500 MG/100 ML BAG IVPB SCH (06:28)
[2017-04-30 08:18] VITALS: BP 128/87; PULSE 61; TEMP 97.9
--- NOTE | 2017-04-30 09:08 | CP.PCM.PN ---
Subjective - Date & Time of Evaluation Date of Evaluation: 04/30/17 Time of Evaluation: 08:54 - Subjective Subjective: Surgery Progress Note for Dr. Motta HPI: Patient seen and examined at bedside. Doing well. Does not like the diet here but does not say she has any loss of appetite. Abdominal pain has resolved. Ambulating daily. Denies N/V/D/F/CP/SOB Objective - Vital Signs/Intake and Output Vital Signs (last 24 hours): Temp Pulse Resp BP Pulse Ox 97.9 F 61 20 128/87 100 04/30/17 08:14 04/30/17 08:14 04/30/17 08:14 04/30/17 08:14 04/30/17 08:14 Intake and Output: 04/30/17 04/30/17 06:59 18:59 Intake Total 1080 Balance 1080 - Medications Medications: Current Medications Acetaminophen (Tylenol 325mg Tab) 650 mg PO Q6H PRN PRN Reason: Fever >100.4 F Metronidazole (Flagyl) 500 mg in 100 mls @ 100 mls/hr IVPB Q8 [facility]EVE PRN Reason: Protocol Last Admin: 04/30/17 06:28 Dose: Not Given Sodium Chloride (Sodium Chloride 0.9%) 1,000 mls @ 100 mls/hr IV .Q10H [facility] Last Admin: 04/30/17 06:28 Dose: Not Given Levofloxacin/Dextrose (Levaquin 500mg) 500 mg in 100 mls @ 100 mls/hr IVPB DAILY [facility] Stop: 05/01/17 23:59 Last Admin: 04/29/17 10:33 Dose: 100 mls/hr Dextrose/Sodium Chloride (Dextrose 5%/0.9% Ns 1000 Ml) 1,000 mls @ 100 mls/hr IV .Q10H [facility] Last Admin: 04/30/17 06:28 Dose: Not Given Pantoprazole Sodium (Protonix Inj) 40 mg IVP DAILY [facility] Last Admin: 04/29/17 10:33 Dose: 40 mg - Labs Labs: 04/29/17 07:00 04/29/17 07:00 PT 11.8 Seconds (9.9-11.8) 04/27/17 14:22 INR 1.09 (0.93-1.08) H 04/27/17 14:22 APTT 31.5 Seconds (23.7-30.8) H 04/27/17 14:22 - Constitutional Appears: Well, Non-toxic, No Acute Distress - Head Exam Head Exam: ATRAUMATIC, NORMAL INSPECTION, NORMOCEPHALIC - Eye Exam Eye Exam: EOMI - ENT Exam ENT Exam: Mucous Membranes Moist - Respiratory Exam Respiratory Exam: Clear to Ausculation Bilateral, NORMAL BREATHING PATTERN - Cardiovascular Exam Cardiovascular Exam: REGULAR RHYTHM - GI/Abdominal Exam GI & Abdominal Exam: Soft, Normal Bowel Sounds. absent: Distended, Tenderness - Extremities Exam Extremities Exam: absent: Joint Swelling, Tenderness - Neurological Exam Neurological Exam: Alert, Awake, Oriented x3 - Psychiatric Exam Psychiatric exam: Normal Affect, Normal Mood - Skin Skin Exam: Dry, Intact, Normal Color, Warm Assessment and Plan - Assessment and Plan (Free Text) Assessment: 61F w/abdominal pain Plan: * Tolerating diet * No surgical intervention needed at this time * Clear for discharge from surgical standpoint * Further reccs per Dr. Kalia Bess PGY1
--- NOTE | 2017-04-30 09:11 | PN ---
DATE: 04/30/2017 SUBJECTIVE: I saw Ms. Yeh this morning. She is a 61-year-old black female, known to consultants with a past medical history of diverticulosis. The patient was admitted with diverticulitis of the distal descending colon and sigmoid with small abscess. The patient has been on Levaquin and metronidazole therapy for the past several days, making good progress. At the bedside this morning, the patient has very well discomfort in all four quadrants. The abdomen appears to be compressed and she has no nausea, vomiting or rectal bleeding. Diet was handled fairly well and she is able to ambulate without abdominal pain. PHYSICAL EXAMINATION VITAL SIGNS: I reviewed this patient's vital signs. HEENT: Noncontributory. LUNGS: Clear to auscultation. HEART: Regular rhythm. ABDOMEN: Soft. No tenderness elicited in the right upper and right lower quadrant. Epigastric area is nontender. She has no tenderness elicited or radiation or discomfort after palpation of the paraumbilical area. Fullness is not appreciated in the left upper quadrant or left paraumbilical, but there is fullness still located in the area of the deep left lower quadrant. There is only very mid discomfort elicited on deep palpation in the lateral area. Laboratory data and respective consultants' notes reviewed. OVERALL ASSESSMENT: This is a 61-year-old female here with complaints of abdominal pain secondary to diverticulitis of the descending colon and sigmoid. The patient will be followed up by the surgical team later on this morning. Continue for rapid clinical response and have delineated symptoms, the patient can probably be released today, be followed up in the office by Dr. Andujar, Dr. Motta and myself. Antibiotic choice at this time point, which could possibly consist of either Levaquin 500 mg once daily, metronidazole 500 mg t.i.d., Cipro 500 mg b.i.d. Choice would be as per the surgical service. I stress the issue of dietary discretion in this particular case, discretion in view of the patient's recent presentation with an abscess on top of diverticulitis. I suggest that the patient, if discharged today, follow up with Dr. Andujar sometime this week as well as possibly Dr. Motta. Suggested follow up in my office either this Sunday or within the Sunday, less than about a week and a half. Madi Toure DO
--- NOTE | 2017-04-30 10:36 | PN ---
DATE: SUBJECTIVE: Geraldine Yeh is seen. The patient is being discharged. Her abdominal pain has resolved. She is afebrile. Vital signs are normal. White count was 7 last time, which is yesterday. The patient is being discharged and will be seeing in the office in about a week. Sanjay Motta MD
[2017-04-30] MEDS: levoFLOXacin 500 mg in D5W 500 MG/100 ML BAG IVPB SCH (11:38)
--- NOTE | 2017-04-30 19:40 | CP.PCM.DIS ---
<MelissaWein - Last Filed: 04/30/17 19:51> Provider - Provider Date of Admission: 04/27/17 19:37 Attending physician: Rios Quiroga MD Primary care physician: José Andujar MD Time Spent in preparation of Discharge (in minutes): 40 Hospital Course - Lab Results Lab Results: Micro Results 04/27/17 20:45 Blood Blood Culture - Preliminary NO GROWTH AFTER 48 HOURS 04/27/17 20:22 Blood Blood Culture - Preliminary NO GROWTH AFTER 48 HOURS Most Recent Lab Values WBC 7.0 10^3/ul (4.5-11.0) D 04/29/17 07:00 RBC 3.87 10^6/uL (3.5-6.1) 04/29/17 07:00 Hgb 10.0 g/dL (12.0-16.0) L 04/29/17 07:00 Hct 30.8 % (36.0-48.0) L 04/29/17 07:00 MCV 79.6 fl (80.0-105.0) L 04/29/17 07:00 MCH 25.8 pg (25.0-35.0) 04/29/17 07:00 MCHC 32.5 g/dl (31.0-37.0) 04/29/17 07:00 RDW 13.6 % (11.5-14.5) 04/29/17 07:00 Plt Count 300 10^3/uL (120.0-450.0) 04/29/17 07:00 MPV 9.9 fl (7.0-11.0) 04/29/17 07:00 Gran % 73.6 % (50.0-68.0) H 04/29/17 07:00 Lymph % (Auto) 15.5 % (22.0-35.0) L 04/29/17 07:00 [place] % (Auto) 9.4 % (1.0-6.0) H 04/29/17 07:00 Eos % (Auto) 1.1 % (1.5-5.0) L 04/29/17 07:00 Baso % (Auto) 0.4 % (0.0-3.0) 04/29/17 07:00 Gran # 5.14 (1.4-6.5) 04/29/17 07:00 Lymph # 1.1 (1.2-3.4) L 04/29/17 07:00 [place] # 0.7 (0.1-0.6) H 04/29/17 07:00 Eos # 0.1 (0.0-0.7) 04/29/17 07:00 Baso # 0.03 K/mm3 (0.0-2.0) 04/29/17 07:00 PT 11.8 Seconds (9.9-11.8) 04/27/17 14:22 INR 1.09 (0.93-1.08) H 04/27/17 14:22 APTT 31.5 Seconds (23.7-30.8) H 04/27/17 14:22 Sodium 144 mmol/L (132-148) 04/29/17 07:00 Potassium 3.5 mmol/L (3.6-5.0) L 04/29/17 07:00 Chloride 108 mmol/L (98-107) H 04/29/17 07:00 Carbon Dioxide 27 mmol/L (21-33) 04/29/17 07:00 Anion Gap 13 (10-20) 04/29/17 07:00 BUN 3 mg/dL (7-21) L 04/29/17 07:00 Creatinine 0.5 mg/dL (0.7-1.2) L 04/29/17 07:00 Est GFR ( Amer) > 60 04/29/17 07:00 Est GFR (Non-Af Amer) > 60 04/29/17 07:00 Random Glucose 104 mg/dL (70-110) 04/29/17 07:00 Calcium 8.4 mg/dL (8.4-10.5) 04/29/17 07:00 Total Bilirubin 0.6 mg/dL (0.2-1.3) 04/29/17 07:00 AST 31 U/L (14-36) 04/29/17 07:00 ALT 33 U/L (7-56) 04/29/17 07:00 Alkaline Phosphatase 74 U/L (38-126) 04/29/17 07:00 Total Protein 6.5 g/dL (5.8-8.3) 04/29/17 07:00 Albumin 3.2 g/dL (3.0-4.8) 04/29/17 07:00 Globulin 3.3 gm/dL 04/29/17 07:00 Albumin/Globulin Ratio 1.0 (1.1-1.8) L 04/29/17 07:00 Lipase 32 U/L (23-300) 04/27/17 14:22 Urine Color Yellow (YELLOW) 04/27/17 14:29 Urine Appearance Sl cloudy (CLEAR) 04/27/17 14: Urine pH 6.0 (4.7-8.0) 04/27/17 14:29 Ur Specific [place] >= 1.030 (1.005-1.035) 04/27/17 14:29 Urine Protein 100 mg/dL (<30 mg/dL) H 04/27/17 14:29 Urine Glucose (UA) Negative mg/dL (NEGATIVE) 04/27/17 14:29 Urine Ketones 40 mg/dL (NEGATIVE) H 04/27/17 14:29 Urine Blood Moderate (NEGATIVE) H 04/27/17 14:29 Urine Nitrate Negative (NEGATIVE) 04/27/17 14:29 Urine Bilirubin Moderate (NEGATIVE) H 04/27/17 14:29 Urine Urobilinogen 1.0 E.U./dL (<1 E.U./dL) H 04/27/17 14:29 Ur Leukocyte Esterase Negative [place]illem/uL (NEGATIVE) 04/27/17 14:29 Urine RBC 0 - 2 /hpf (0-2) 04/27/17 14:29 Urine WBC 1 - 3 /hpf (0-6) 04/27/17 14:29 Ur Epithelial Cells 1 - 3 /hpf (0-5) 04/27/17 14:29 - Hospital Course Hospital Course: This is a 61 year old with a PMH of diverticulosis who came to ED for LLQ pain x 1 week. She reports it is intermittent and does not radiate. She has been able to go to work and has not taken any pain medications. She states today she came to ED because it has not resolved. She denies having any n/v/d, CP, SOB, fever/chills, numbness/tingling, dysuria or hematuria. Her GI is Dr. Toure. He did a colonoscopy this summer and patient reports it was "normal". She had only 1 episode of diverticulitis in the past 18 months ago. In ED, CT abd/ pelvis showed acute diverticulitis in sigmoid and distal descending colon with small phlegmon process. While being admitted the patient was seen by Gastroenterology and Surgery. GI recommended no further intervention and for the patient to follow up with surgery and at their office within one week of discharge. The patient was also advised to keep the diet liquid for the next couple of days and to advance as tolerated. Surgery recommended no intervention was required on their part and to follow up within one week of discharge in the office. The patient was discharged on Ciprofloxacin and Flagyl and advised to follow up with surgery and GI within one week of discharge. Discharge Exam - Head Exam Head Exam: ATRAUMATIC, NORMAL INSPECTION, NORMOCEPHALIC - Eye Exam Eye Exam: EOMI, Normal appearance, PERRL. absent: Periorbital swelling, Periorbital tenderness Pupil Exam: NORMAL ACCOMODATION, PERRL. absent: Irregular - ENT Exam ENT Exam: Normal Exam, Normal Oropharynx - Neck Exam Neck exam: Normal Inspection - Respiratory Exam Respiratory Exam: Clear to PA & Lateral, NORMAL BREATHING PATTERN, UNREMARKABLE - Cardiovascular Exam Cardiovascular Exam: REGULAR RHYTHM, RRR, +S1, +S2. absent: Rubs - GI/Abdominal Exam GI & Abdominal Exam: Normal Bowel Sounds, Unremarkable. absent: Rebound - Extremities Exam Extremities exam: full ROM - Back Exam Back exam: NORMAL INSPECTION. absent: CVA tenderness (L), CVA tenderness (R), paraspinal tenderness - Neurological Exam Neurological exam: Alert, CN II-XII Intact, Normal Gait - Psychiatric Exam Psychiatric exam: Normal Affect, Normal Mood - Skin Skin Exam: Dry, Normal Color Discharge Plan - Discharge Medications Prescriptions: Levofloxacin [Levaquin] 500 mg PO DAILY #7 tablet Metronidazole [Flagyl] 500 mg PO TID #21 tablet - Follow Up Plan Condition: STABLE Disposition: HOME/ ROUTINE Instructions: Diverticulitis (DC), Abscess (GEN) Additional Instructions: Follow up with Dr. Andujar in 1 week. Follow up with Dr. Toure. Follow up with Dr. Motta for repeat CT scan. If you experience any worsening of pain, nausea/vomiting, fever or chills contact your doctor or come back to the emergency room. Referrals: José Andujar MD [Primary Care Provider] - Sanjay Motta MD [Staff Provider] - Madi Toure DO [Staff Provider] - <Rios Quiroga - Last Filed: 05/01/17 09:11> Provider - Provider Date of Admission: 04/27/17 19:37 Attending physician: Rios Quiroga MD Primary care physician: José Andujar MD Hospital Course - Lab Results Lab Results: Micro Results 04/27/17 20:45 Blood Blood Culture - Preliminary NO GROWTH AFTER 3 DAYS 04/27/17 20:22 Blood Blood Culture - Preliminary NO GROWTH AFTER 3 DAYS Most Recent Lab Values WBC 7.0 10^3/ul (4.5-11.0) D 04/29/17 07:00 RBC 3.87 10^6/uL (3.5-6.1) 04/29/17 07:00 Hgb 10.0 g/dL (12.0-16.0) L 04/29/17 07:00 Hct 30.8 % (36.0-48.0) L 04/29/17 07:00 MCV 79.6 fl (80.0-105.0) L 04/29/17 07:00 MCH 25.8 pg (25.0-35.0) 04/29/17 07:00 MCHC 32.5 g/dl (31.0-37.0) 04/29/17 07:00 RDW 13.6 % (11.5-14.5) 04/29/17 07:00 Plt Count 300 10^3/uL (120.0-450.0) 04/29/17 07:00 MPV 9.9 fl (7.0-11.0) 04/29/17 07:00 Gran % 73.6 % (50.0-68.0) H 04/29/17 07:00 Lymph % (Auto) 15.5 % (22.0-35.0) L 04/29/17 07:00 [place] % (Auto) 9.4 % (1.0-6.0) H 04/29/17 07:00 Eos % (Auto) 1.1 % (1.5-5.0) L 04/29/17 07:00 Baso % (Auto) 0.4 % (0.0-3.0) 04/29/17 07:00 Gran # 5.14 (1.4-6.5) 04/29/17 07:00 Lymph # 1.1 (1.2-3.4) L 04/29/17 07:00 [place] # 0.7 (0.1-0.6) H 04/29/17 07:00 Eos # 0.1 (0.0-0.7) 04/29/17 07:00 Baso # 0.03 K/mm3 (0.0-2.0) 04/29/17 07:00 PT 11.8 Seconds (9.9-11.8) 04/27/17 14:22 INR 1.09 (0.93-1.08) H 04/27/17 14:22 APTT 31.5 Seconds (23.7-30.8) H 04/27/17 14:22 Sodium 144 mmol/L (132-148) 04/29/17 07:00 Potassium 3.5 mmol/L (3.6-5.0) L 04/29/17 07:00 Chloride 108 mmol/L (98-107) H 04/29/17 07:00 Carbon Dioxide 27 mmol/L (21-33) 04/29/17 07:00 Anion Gap 13 (10-20) 04/29/17 07:00 BUN 3 mg/dL (7-21) L 04/29/17 07:00 Creatinine 0.5 mg/dL (0.7-1.2) L 04/29/17 07:00 Est GFR ( Amer) > 60 04/29/17 07:00 Est GFR (Non-Af Amer) > 60 04/29/17 07:00 Random Glucose 104 mg/dL (70-110) 04/29/17 07:00 Calcium 8.4 mg/dL (8.4-10.5) 04/29/17 07:00 Total Bilirubin 0.6 mg/dL (0.2-1.3) 04/29/17 07:00 AST 31 U/L (14-36) 04/29/17 07:00 ALT 33 U/L (7-56) 04/29/17 07:00 Alkaline Phosphatase 74 U/L (38-126) 04/29/17 07:00 Total Protein 6.5 g/dL (5.8-8.3) 04/29/17 07:00 Albumin 3.2 g/dL (3.0-4.8) 04/29/17 07:00 Globulin 3.3 gm/dL 04/29/17 07:00 Albumin/Globulin Ratio 1.0 (1.1-1.8) L 04/29/17 07:00 Lipase 32 U/L (23-300) 04/27/17 14:22 Urine Color Yellow (YELLOW) 04/27/17 14:29 Urine Appearance Sl cloudy (CLEAR) 04/27/17 14:29 Urine pH 6.0 (4.7-8.0) 04/27/17 14:29 Ur Specific [place] >= 1.030 (1.005-1.035) 04/27/17 14:29 Urine Protein 100 mg/dL (<30 mg/dL) H 04/27/17 14:29 Urine Glucose (UA) Negative mg/dL (NEGATIVE) 04/27/17 14:29 Urine Ketones 40 mg/dL (NEGATIVE) H 04/27/17 14:29 Urine Blood Moderate (NEGATIVE) H 04/27/17 14:29 Urine Nitrate Negative (NEGATIVE) 04/27/17 14:29 Urine Bilirubin Moderate (NEGATIVE) H 04/27/17 14:29 Urine Urobilinogen 1.0 E.U./dL (<1 E.U./dL) H 04/27/17 14:29 Ur Leukocyte Esterase Negative [place]/uL (NEGATIVE) 04/27/17 14:29 Urine RBC 0 - 2 /hpf (0-2) 04/27/17 14:29 Urine WBC 1 - 3 /hpf (0-6) 04/27/17 14:29 Ur Epithelial Cells 1 - 3 /hpf (0-5) 04/27/17 14:29 Attending/Attestation - Attestation I have personally seen and examined this patient.: Yes I have fully participated in the care of the patient.: Yes I have reviewed all pertinent clinical information, including history, physical exam and plan: Yes Notes (Text): 04/30/17 61 year old female with past medical history of diverticulosis who presented with LLQ pain. She was found to have acute diverticulitis of sigmoid and distal descending colon with small phlegmon process / abscess. She was started on iv antibiotics. She was seen by GI and surgery who did not recommend any acute surgical intervention. Her symptoms improved and her diet was advanced. Patient is discharged home to follow up with her pmd. Follow up with GI and surgery. Continue with po antibiotics as prescribed. Rios Quiroga MD Hospitalist.
== END 2017-04-30 11:55 | disposition home or self-care (01) | DRG 392 ==
LOC: ED 13:53 → ERH 19:37 → 3RSO 21:04
PROVIDERS: ADMIT Internal Medicine; ATTEND Internal Medicine
DX: K57.32 Diverticulitis of large intestine without perforation or abscess without bleeding (principal); K63.0 Abscess of intestine; Z80.3 Family history of malignant neoplasm of breast; R40.2412 Glasgow coma scale score 13-15, at arrival to emergency department; K64.9 Unspecified hemorrhoids; Z88.5 Allergy status to narcotic agent